=== PATIENT | female | born 1985 ===

== ENCOUNTER 2017-01-04 20:10 | Emergency (ER) | payer OTHER ==
--- NOTE | 2017-01-04 20:41 | C.PDOC ---
History Of Present Illness 31 year old female presents to the ED with complaints of new onset vaginal bleeding that began this afternoon. Patient is and her prior resulted in a spontaneous miscarriage. She describes the vaginal bleeding as "not as heavy as period" also notes pelvic cramping with no other symptoms. Previous ultrasound was positive for IEP, she denies any UTI symptoms or fever. Time Seen by Provider: 01/04/17 20:41 Chief Complaint (Nursing): Female Genitourinary History Per: Patient History/Exam Limitations: no limitations Onset/Duration Of Symptoms: Hrs Current Symptoms Are (Timing): Still Present Quality Of Discomfort: Cramping (pelvic) Associated Symptoms: denies: Fever, Chills, Nausea, Vomiting, Diarrhea, Constipation, Urinary Symptoms Abnormal Vaginal Bleeding: Yes Past Medical History Reviewed: Historical Data, Nursing Documentation, Vital Signs Vital Signs: Last Vital Signs Temp 97.9 F 01/04/17 20:22 Pulse 85 01/04/17 20:22 Resp 20 01/04/17 20:22 BP 135/72 01/04/17 20:22 Pulse Ox 100 01/04/17 22:28 Family History: States: No Known Family Hx - Social History Hx Alcohol Use: No Hx Substance Use: No - Immunization History Hx Tetanus Toxoid Vaccination: Yes Hx Influenza Vaccination: Yes Hx Pneumococcal Vaccination: Yes Review Of Systems Constitutional: Negative for: Fever, Chills, Sweats Cardiovascular: Negative for: Chest Pain, Palpitations Respiratory: Negative for: Cough, Shortness of Breath, Wheezing Gastrointestinal: Negative for: Nausea, Vomiting, Abdominal Pain, Diarrhea, Constipation Genitourinary: Positive for: Vaginal Bleeding (describes as "not as heavy as period"). Negative for: Dysuria, Hematuria Physical Exam - Physical Exam Appears: Non-toxic, No Acute Distress Skin: Warm, Dry, No Rash Head: Atraumatic Eye(s): bilateral: Normal Inspection Oral Mucosa: Moist Neck: Normal ROM, Supple Chest: Symmetrical, No Deformity Cardiovascular: Rhythm Regular Respiratory: No Rales, No Rhonchi, No Stridor, No Wheezing Gastrointestinal/Abdominal: Soft, No Tenderness, No Distention, No Guarding, No Rebound Pelvic: Other ( deferred ) Extremity: Normal ROM, No Tenderness Neurological/Psych: Oriented x3 ED Course And Treatment - Laboratory Results Result Diagrams: 01/04/17 20:55 01/04/17 20:55 O2 Sat by Pulse Oximetry: 100 (room air ) Pulse Ox Interpretation: Normal - CT Scan/US US Transabdominal Other Rad Studies (CT/US): Read By Radiologist, Radiology Report Reviewed CT/US Interpretation: FINDINGS: Limitations: Patient declined transvaginal examination. Gestation: Single live intrauterine gestation. heart rate of 167 beats per minute. [place]-rump. length of 1.51 cm, correlating with gestational age of 7 weeks 6 days. Uterus/cervix: Questionable small hypoechoic collection about gestational sac. No cervical. dilatation or effacement. Ovaries: RIGHT ovary: Normal. LEFT ovary: Not visualized. No adnexal masses. Free fluid: No significant free fluid. IMPRESSION: 1. Single live intrauterine gestation. 2. Questionable small subchorionic hemorrhage. Progress - Re-Evaluation Re-evaluation Note: 01/04/17 22:28 FEELS BETTER NAD VSS. ADVISED FU OBGYN - Data Reviewed Data Reviewed: Lab, Diagnostic imaging, Old records Disposition Counseled Patient/Family Regarding: Studies Performed, Diagnosis, Need For Followup - Disposition Referrals: YOUR,OBGYN [Other] Disposition: HOME/ ROUTINE Disposition Time: 22:28 Condition: IMPROVED Instructions: Threatened Miscarriage (ED) - Clinical Impression Clinical Impression: Threatened - Scribe Statement The provider has reviewed the documentation as recorded by the Scribzaki Pate All medical record entries made by the Hannyibzaki were at my direction and personally dictated by me. I have reviewed the chart and agree that the record accurately reflects my personal performance of the history, physical exam, medical decision making, and the department course for this patient. I have also personally directed, reviewed, and agree with the discharge instructions and disposition.
[2017-01-04 21:05] LABS: BASO % 0.5 % (0.0-2.0); EOS # 0.4 K/uL (0.0-0.7); EOS % 4.7 % (0.0-4.0); HEMATOCRIT 39.3 % (34.0-47.0); LYMPH # 1.8 K/uL (1.0-4.3); MEAN CELL VOLUME 89.3 fL (81.0-99.0); MEAN CORPUSCULAR HEMOGLOBIN 30.2 pg (27.0-31.0); MEAN CORPUSCULAR HGB CONC 33.8 g/dL (33.0-37.0); MEAN PLATELET VOLUME 8.3 fL (7.2-11.7); MONO # 0.9 K/uL (0.0-0.8); MONO % 9.6 % (0.0-10.0); RED CELL DISTRIBUTION WIDTH 13.1 % (11.5-14.5); WHITE BLOOD COUNT 8.9 K/uL (4.8-10.8)
[2017-01-04 21:08] LABS: RBC URINE < 1 /hpf (0-3); URINE BACTERIA RARE (<OCC); URINE BILIRUBIN NEGATIVE (NEGATIVE); URINE COLOR Colorless (YELLOW); URINE GLUCOSE (UA) NORMAL (Normal); URINE KETONE NEGATIVE (NEGATIVE); URINE LEUKOCYTE ESTERASE NEG Leu/uL (Negative); URINE PROTEIN NEGATIVE (NEGATIVE); URINE UROBILINOGEN NORMAL mg/dL (0.2-1.0); WBC URINE < 1 /hpf (0-5)
[2017-01-04 21:15] LABS: CHLORIDE 96 mmol/L (98-107); POTASSIUM 3.9 mmol/L (3.6-5.2); SODIUM 132 mmol/L (132-148)
[2017-01-04 21:18] LABS: BLOOD UREA NITROGEN 14 mg/dL (7-17); CARBON DIOXIDE 25 mmol/L (22-30); GFR AFRICAN-AMERICAN > 60; GLUCOSE,RANDOM 96 mg/dL (65-105)
[2017-01-04 21:19] LABS: CALCIUM 9.3 mg/dl (8.6-10.4)
[2017-01-04 21:22] LABS: URINE BLOOD 1+ (NEGATIVE)
[2017-01-04 21:31] VITALS: O2SAT 100
[2017-01-04 22:37] VITALS: BP 108/71; PULSE 73; RESP 18; TEMP 98
--- NOTE | 2017-01-05 08:40 | US ---
PROCEDURE: OB Pelvic Ultrasound HISTORY: vag bleed ro ectopic COMPARISON: None available. FINDINGS: UTERUS: Please note patient refused transvaginal examination at this time. Single Live intrauterine gestation. CRL equivalent to 7 weeks 6 days gestatioin Gestational sac diameter equivalent to 8 weeks 0 days gestation age (Ultrasound estimated): A weeks 0 days Date of delivery (Ultrasound estimated) : 08/16/2017 Heart rate: 167 bpm. [place]-gestational hemorrhage: Possible small perigestational hemorrhage. Uterus measures 12.1 x 6.0 x 7.2 cm. No mass CERVIX: Long and closed. No cervical abnormality seen. RIGHT OVARY: Measures 3.7 x 2.3 x 4.3 cm. No mass. Normal flow. LEFT OVARY: Not visualized by transabdominal technique FREE FLUID: None. OTHER FINDINGS: None. IMPRESSION: Single live intrauterine gestation of approximately 8 weeks 0 days gestational age. Possible small subchorionic hemorrhage. heart rate 167. JENNIFER by ultrasound 08/16/2017.
== END 2017-01-04 22:37 | disposition home or self-care (01) ==
LOC: C.ER 20:10
DX: O20.0 Threatened abortion (principal); Z3A.01 Less than 8 weeks gestation of pregnancy

== ENCOUNTER 2017-08-10 18:15 | Inpatient (IN) | payer OTHER ==
[2017-08-10] MEDS ORDERED: Lactated Ringer's 1,000 ML IV SCH (18:45)
[2017-08-10 19:27] LABS: BASO % 0.2 % (0.0-2.0); EOS # 0.1 K/uL (0.0-0.7); EOS % 1.6 % (0.0-4.0); HEMATOCRIT 38.5 % (34.0-47.0); LYMPH # 1.3 K/uL (1.0-4.3); LYMPH % 15.2 % (20.0-40.0); MEAN CELL VOLUME 88.7 fL (81.0-99.0); MEAN CORPUSCULAR HEMOGLOBIN 30.7 pg (27.0-31.0); MEAN CORPUSCULAR HGB CONC 34.6 g/dL (33.0-37.0); MEAN PLATELET VOLUME 7.7 fL (7.2-11.7); MONO # 0.8 K/uL (0.0-0.8); MONO % 9.6 % (0.0-10.0); NRBC % 0.1 % (0.0-2.0); RED CELL DISTRIBUTION WIDTH 12.5 % (11.5-14.5); WHITE BLOOD COUNT 8.4 K/uL (4.8-10.8)
[2017-08-10 19:40] LABS: ALKALINE PHOSPHATASE 241 U/L (38-126); ALT/SGPT 46 U/L (9-52); AST/SGOT 29 U/L (14-36); BILIRUBIN,TOTAL 0.4 mg/dL (0.2-1.3); BLOOD UREA NITROGEN 10 mg/dL (7-17); CALCIUM 8.8 mg/dl (8.6-10.4); CARBON DIOXIDE 22 mmol/L (22-30); CHLORIDE 105 mmol/L (98-107); GFR AFRICAN-AMERICAN > 60; GLUCOSE,RANDOM 75 mg/dL (65-105); POTASSIUM 3.9 mmol/L (3.6-5.2); SODIUM 135 mmol/L (132-148); TOTAL PROTEIN 8.4 g/dL (6.3-8.3)
[2017-08-10 19:41] LABS: ALB/GLOB RATIO 0.9 (1.0-2.1)
[2017-08-10 20:04] LABS: RBC URINE 9 /hpf (0-3); URINE BILIRUBIN NEGATIVE (NEGATIVE); URINE BLOOD 1+ (NEGATIVE); URINE COLOR Straw (YELLOW); URINE GLUCOSE (UA) NORMAL (Normal); URINE KETONE NEGATIVE (NEGATIVE); URINE LEUKOCYTE ESTERASE 2+ Leu/uL (Negative); URINE PROTEIN NEGATIVE (NEGATIVE); URINE UROBILINOGEN NORMAL mg/dL (0.2-1.0); WBC URINE 23 /hpf (0-5)
[2017-08-10 20:06] LABS: URINE BACTERIA FEW (<OCC)
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
[2017-08-11] MEDS ORDERED: Bupivacaine HCl/FentaNYL Cit 100 ML EPI ONE (02:26)
[2017-08-11] MEDS ORDERED: Oxytocin 30 UNIT 30 UNITS/500 ML BAG IV SCH (09:30)
[2017-08-11] MEDS ORDERED: Benzocaine/Menthol 20%-0.5% Topical Spray (60 ml) TOP PRN (10:58)
[2017-08-11] MEDS ORDERED: Oxycodone/Acetaminophen 5/325 mg Tab PO PRN (10:58)
--- NOTE | 2017-08-11 10:58 | OBDS ---
DELIVERY PERSONNEL Delivery Doctor: Marcy Burris MD Internal Sales Engineer: Jon Montero RN Anesthesiologist: [place] MATERNAL INFORMATION Delivery Anesthesia: Epidural Estimated Blood Loss (ml): 200 Maternal Complications: None LABOR SUMMARY EDC: 08/12/2017 00:00 No. Babies in Womb: 1 Attempted: No Labor Anesthesia: Epidural LABOR INFORMATION Reason for Induction: Other Reason for Induction Other: decreased movement Onset of Labor: 08/10/2017 22:00 Complete Dilatation: 08/11/2017 08:36 Cervical Ripening Agents: Cervidil Oxytocin: Augmentation Group B Beta Strep: Negative Antibiotics # of Doses: 0 Steroids Given: None Reason Steroids Not Administered: Not Applicable MEMBRANES Membranes Rupture Method: Spontaneous Rupture of Membranes: 08/11/2017 08:40 Length of Rupture (hrs): 1.87 Amniotic Fluid Color: Clear Amniotic Fluid Amount: Small Amniotic Fluid Odor: Normal STAGES OF LABOR Stage 1 hrs: 10 Stage 1 min: 36 Stage 2 hrs: 1 Stage 2 min: 56 Stage 3 hrs: 0 Stage 3 min: 6 Total Time in Labor hrs: 12 Total Time in Labor min: 38 VAGINAL DELIVERY Episiotomy: Median Laceration Type: None Laceration Repair: Yes Initial Vag Sponge Count: 20 Final Vag Sponge Count: 20 Initial Vag Sharps Count: 1 Final Vag Sharps Count: 1 Sponge Count Correct: Yes Sharps Count Correct: Yes BABY A INFORMATION Delivery Date/Time: 08/11/2017 10:32 Method of Delivery: Vaginal Born in Route : No : N/A Forceps: N/A Vacuum Extraction: N/A Shoulder Dystocia : No SHOULDER DYSTOCIA BABY A Delivery Date/Time: 08/11/2017 10:32 PRESENTATION/POSITION BABY A Presentation: Cephalic Breech Presentation: N/A PLACENTA INFORMATION BABY A Placenta Delivery Time : 08/11/2017 10:38 Placenta Method of Delivery: Spontaneous Placenta Status: Delivered SCORES BABY A Heart Rate 1 min: >100 bpm Resp Effort 1 min: Good Cry Reflex Irritability 1 min: Cough or Sneeze or Pulls Away Muscle Tone 1 min: Active Motion Color 1 min: Body [place], Extremities Blue Resuscitation Effort 1 min: Tactile Stimulation SCORE 1 MIN: 9 Heart Rate 5 min: >100 bpm Resp Effort 5 min: Good Cry Reflex Irritability 5 min: Cough or Sneeze or Pulls Away Muscle Tone 5 min: Active Motion Color 5 min: Body [place], Extremities Blue Resuscitation Effort 5 min: N/A SCORE 5 MIN: 9 INFANT INFORMATION BABY A Gestational Age at Delivery: 39.6 Gestational Status: Term Infant Outcome : Liveborn Condition : Stable Sex: Male IDENTIFICATION/MEDS BABY A ID Band Number: [id number] ID Band Location: Left Leg; Left Arm Sensor Number: [id number] Sensor Location : Cord Clamp WEIGHT/LENGTH BABY A Birthweight (gms): 2630 Infant Weight (lb): 5 Infant Weight (oz): 13 Length Inches: 18.50 Length cms: 47.0 CORD INFORMATION BABY A No. Cord Vessels: 3 Nuchal Cord : N/A Cord Blood Taken: Yes Infant Suction: Mouth; Nose
[2017-08-12 07:23] LABS: BASO % 0.3 % (0.0-2.0); EOS # 0.1 K/uL (0.0-0.7); MEAN CORPUSCULAR HGB CONC 35.3 g/dL (33.0-37.0); MONO # 0.7 K/uL (0.0-0.8); RED CELL DISTRIBUTION WIDTH 12.5 % (11.5-14.5)
[2017-08-12 07:27] LABS: HEMATOCRIT 29.7 % (34.0-47.0); LYMPH # 1.2 K/uL (1.0-4.3); LYMPH % 11.2 % (20.0-40.0); MEAN CELL VOLUME 88.6 fL (81.0-99.0); MEAN CORPUSCULAR HEMOGLOBIN 31.3 pg (27.0-31.0); MEAN PLATELET VOLUME 7.7 fL (7.2-11.7); MONO % 6.3 % (0.0-10.0); WHITE BLOOD COUNT 10.7 K/uL (4.8-10.8)
[2017-08-12] MEDS: Multiple Vitamins Tab PO SCH (09:28)
[2017-08-12 16:38] VITALS: O2SAT 100
[2017-08-13 08:42] VITALS: BP 120/74; PULSE 78; RESP 18
[2017-08-13] MEDS: Multiple Vitamins Tab PO SCH (10:28)
[2017-08-13] MEDS ORDERED: Influenza Vaccine 60 mcg/0.5 mL SYR (4YR UP) IM ONE (15:05)
[2017-08-13 21:56] VITALS: TEMP 97
== END 2017-08-13 17:35 | disposition home or self-care (01) | DRG 775 ==
LOC: C.EROB 18:15 → C.4D 18:35 → C.4M 08-11 12:29
PROVIDERS: ADMIT Obstetrics & Gynecology; ATTEND Obstetrics & Gynecology
PROC: 3E0P7VZ Introduction of Hormone into Female Reproductive, Via Natural or Artificial Opening (ICD-10-PCS; 2017-08-10)
PROC: 10E0XZZ Delivery of Products of Conception, External Approach (ICD-10-PCS; principal; 2017-08-11)
PROC: 0W8NXZZ Division of Female Perineum, External Approach (ICD-10-PCS; 2017-08-11)
DX: O36.8130 Decreased fetal movements, third trimester, not applicable or unspecified (principal); O63.0 Prolonged first stage (of labor); Z3A.39 39 weeks gestation of pregnancy; Z37.0 Single live birth